=== PATIENT | female | born 1995 | race African-American/Black ===

== ENCOUNTER 2019-09-23 17:08 | Inpatient (IN) | payer OTHER ==
[~2019-09-23] VITALS: Ht 172.7 cm; Wt 98.9 kg
--- NOTE | ~2019-09-23 | EMS ---
[address] [address] EMS Patient Care Report Name: YAJAIRA NUGENT Room #: REG HELIO Crury#: [id number] Admission: 09/23/19 Attend Phys: Discharge: Date of : [birth year] Report #: [id number] THIS REPORT FOR: //name// Report Transmitted: 09/23/2019 18:38 EMS Care Summary [place], [place]/[facility] Incident [id number] @ 09/23/2019 16:31 Incident Location [address] [place] [address] Patient YAJAIRA NUGENT Female, 24 Years 1995 Patient Address [address] [place] [address] Patient History Seizures, Patient Allergies No known allergies, Patient Medications Keppra, Chief Complaint SEIZURE Disposition Transported No Lights/[place] Dispatch Reason Convulsions/Seizure Transported To [facility] Narrative PT FOUND LYING ON FLOOR. [facility] P28 ON SCENE. ALL CREW WEARING MASKS. FAMILY STATES THAT PT HAD 2 SEIZURES LASTING ABOUT 1-3 MINUTES. FD STATES THEY WITNESSED A SEIZURE LASTING ABOUT 30 SECONDS. FD HAS PT ON NRB AT 15 LPM. 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 PT NOTED TO HAVE A [facility] [address] [place] [address] EMS Patient Care Report Name: YAJAIRA NUGENT Room #: REG HELIO Curry#: [id number] Admission: 09/23/19 Attend Phys: Discharge: Date of : [birth year] Report #: [id number] [address] SEIZ[address] ON WAY TO ED THAT LASTED 20-30 SECONDS. SURGICAL MASK APPLIED TO PT IN UNIT. TRASNPORTED WITHOUT FURTHER INCIDENT. Initial Vitals @16:54P: 84,R: 16,BP: 118/72,Pain: 0/10,GCS: 9,Glucose: 72,SpO2: 100,Revised Trauma: 11, Assessments @16:48MENTAL:Unresponsive,SKIN:No Abnormalities,HEENT:Head/Face: No Abnormalities,Eyes: No Abnormalities,Neck/Airway: No Abnormalities,LUNG SOUNDS:ABDOMEN:PELVIS//GI:EXTREMITIES:PULSE:NEURO:No Abnormalities, Impression Seizures Procedures @17:01Saline Lock 10cc (20 ga) Site: Antecubital-LeftResponse: UnchangedSucceeded@16:48ALS AssessmentResponse: UnchangedSucceeded@PTAOxygen FlowRate: 15 Device: Non Re-breather Mask (NRB) Response: UnchangedSucceeded Timeline BACON SKINNER,Oxygen FlowRate: 15 Device: Non Re-breather Mask (NRB) Response: UnchangedSucceeded, 16:28,Call Received 16:28,Dispatch Notified 16:31,Dispatched 16:33,En Route 16:44,On Scene 16:48,At Patient 16:48,ALS Assessment,Response: UnchangedSucceeded, 16:54,BP: 118/72 M,PULSE: 84,RR: 16 R,SPO2: 100 Ox,ETCO2: ,B,PAIN: 0,GCS: 9, 16:55,Depart Scene 17:01,Saline Lock 10cc 20 ga Site: Antecubital-Left,Response: UnchangedSucceeded, 17:01,At Destination 17:28,Call Closed Disclaimer v1.1 Copyright 2020 [employer] This EMS Care Summary contains data elements from the applicable legal record (which may be displayed differently). It is designed to provide pertinent information for the following purposes: continuity of care, clinical quality, and state data reporting. The complete legal record is available to ED staff and administrators of the receiving hospital in [employer]'s Patient Tracker. All data is provided "as is."
[2019-09-23 17:09] VITALS: BP 145/83
[2019-09-23] MEDS ORDERED: KEPPRA XR500 MG PO (17:25)
[2019-09-23 17:55] LABS: ABSOLUTE NEUTROPHILS 2.2 thou/uL (1.4-8.2); BASOPHILS 0.6 % (0.0-2.0); EOSINOPHILS 3.6 % (0.0-3.0); HEMATOCRIT 36.6 % (37.0-47.0); HEMOGLOBIN 12.3 gm/dL (12.0-15.0); LYMPHOCYTES 41.6 % (24.0-44.0); MCH 28.3 pg (26.0-34.0); MCHC 33.6 g/dL (28.0-37.0); MCV 84.2 fL (80.0-100.0); MONOCYTES 7.6 % (1.0-8.0); PLATELET COUNT 219 thou/uL (150-400); POLYS 46.6 % (36.0-66.0); RBC 4.35 mil/uL (4.20-5.00); URINE BILIRUBIN NEGATIVE (Negative); URINE BLOOD 2+ (Negative); URINE CLARITY CLEAR; URINE COLOR YELLOW; URINE GLUCOSE-RANDOM* NEGATIVE (Negative); URINE KETONES NEGATIVE (Negative); URINE LEUKOCYTES-REFLEX NEGATIVE (Negative); URINE NITRITE-REFLEX NEGATIVE (Negative); URINE PROTEIN (DIPSTICK) TRACE (Negative); URINE SPECIFIC GRAVITY >= 1.030 (1.005-1.035); URINE UROBILINOGEN 0.2 E.U./dl (0.2-1.0); WBC 4.8 thou/uL (4.0-11.0)
[2019-09-23 18:04] LABS: SQUAMOUS >10 Many /LPF (0-3)
[2019-09-23 18:05] LABS: MUCUS >6 Heavy strn/LPF (None Seen)
[2019-09-23 18:07] LABS: BACTERIA-REFLEX None Seen /HPF (None Seen); CASTS None Seen /LPF (None Seen); CRYSTALS None Seen /LPF (None Seen); URINE RBC 3-10 Few /HPF (0-2); URINE WBC-REFLEX 0-5 Rare /HPF (0-5); YEAST-REFLEX Present (None Seen)
[2019-09-23 18:14] LABS: AMP/METHAMP Negative (Negative); BARBITURATES Negative (Negative); BENZODIAZEPINES Negative (Negative); COCAINE Negative (Negative); METHADONE Negative (Negative); OPIATES Negative (Negative); PCP Negative (Negative)
[2019-09-23 18:27] LABS: ANION GAP 8 mmol/L (7-16); BUN 11 mg/dL (7-18); CALCIUM 9.1 mg/dL (8.5-10.1); CHLORIDE 103 mmol/L (98-107); CO2 25 mmol/L (21-32); GLUCOSE 120 mg/dL (74-106); POTASSIUM 3.7 mmol/L (3.5-5.1); SODIUM 136 mmol/L (136-145)
[2019-09-23 18:33] LABS: ALBUMIN 3.8 g/dL (3.4-5.0); DIRECT BILIRUBIN < 0.1 mg/dL (<0.1-0.2); SGOT 20 U/L (15-37); SGPT 20 U/L (30-65); TOTAL BILIRUBIN 0.3 mg/dL (0.2-1.0); TOTAL PROTEIN 7.5 g/dL (6.4-8.2)
[2019-09-23 22:10] VITALS: BP 112/50
[2019-09-23 23:37] VITALS: BP 119/59
[2019-09-24 00:02] VITALS: BP 126/59
[2019-09-24 03:26] LABS: HEMATOCRIT 37.7 % (37.0-47.0); HEMOGLOBIN 12.4 gm/dL (12.0-15.0); MCH 27.9 pg (26.0-34.0); MCHC 32.8 g/dL (28.0-37.0); MCV 85.1 fL (80.0-100.0); RBC 4.43 mil/uL (4.20-5.00); RDW 13.4 % (10.5-14.5)
[2019-09-24 03:37] LABS: CALCIUM 8.8 mg/dL (8.5-10.1); CREATININE 0.9 mg/dL (0.6-1.0); POTASSIUM 3.5 mmol/L (3.5-5.1)
[2019-09-24 03:43] LABS: CHOLESTEROL 209 mg/dL (<200); HDL CHOLESTEROL 65 mg/dL (>40); LDL CHOLESTEROL 132 mg/dL (<100); TC:HDL 3.2 Ratio (Not establshd); TRIGLYCERIDE 60 mg/dL (<150); VLDL 12 mg/dL (<40)
[2019-09-24 03:46] LABS: SERUM ASSESSMENT Clear
[2019-09-24 07:28] VITALS: BP 125/72
--- NOTE | 2019-09-24 07:35 | NUR ---
VSS-AFEBRILE LUNGS CLEAR-ROOM AIR. NO SEIZURES SINCE ARRIVAL TO UNIT FROM ER. OOB WITH 1 ASSIST, WEAK AND SLIGHTLY UNSTEADY ON FEET. NO C/O PAIN. FALL PRECAUTIONS IN PLACE, CALLS APPROPRIATELY FOR ANY NEEDED ASSISTANCE.
[2019-09-24 09:25] VITALS: BP 125/73
[2019-09-24 16:10] VITALS: BP 122/71
[2019-09-24 20:05] VITALS: BP 119/56
--- NOTE | 2019-09-24 20:11 | NUR ---
Assumed pt care this am, seizure and fall precautions in place. Seizure was noted at 9 am while EEG was being taken. informed, lorazepam given, seizure lasted for 2 minutes. Diet and medications were tolarated well, sister was at the bed side for most of the day. Seen by neurology this pm, MRI done and EEG, another seizure was noted at shift change, night nurse witnessed this as well. Infomed MD and neurology, keppra dose was changed to be given now. Futher evaluation was recommended by neuro in another facility (video monitored EEG), MD informed. POC followed, with no signs of distress, pt would be very tired after the event and be asleep.
[2019-09-25 00:23] VITALS: BP 117/56
[2019-09-25 01:06] LABS: GLYCOHEMOGLOBIN (HGB A1C) 5.6 % (4.8-5.6)
[2019-09-25 04:38] VITALS: BP 97/59
--- NOTE | 2019-09-25 04:58 | NUR ---
ASSUMED OT CARE AROUND 1900. PT WAS HAVING SEIZURE LIKE ACTIVIY. REPORTED TO IMMEDIATELY AND KEPPRA DOSE INCREASED. PER PT WILL NEED TO TRANSFER TO A DIFFERENT HOSPITAL FOR A PROCEDURE NOT AVAILABLE HERE. SAID THERE'S NO NEED TO TRANSFER THE PT STAT, BUT TO REPORT TO PHYSICIAN FOR IF SEIZURE LIKE ACTIVITY LASTS FOR MORE THAN 30 SECS. NO SEIZURE LIKE ACTIVITY NOTED OR REPORTED AT THIS TIME. LOW BP 97/59 REPORTED ANIL GRESHAM SUPERVISOR TWISTING DEPARTMENT FOR WITHOUT NEW ORDER AT THIS TIME. WILL CONT TO MONITOR FOR ANY CHANGES IN CONDITION.
[2019-09-25 07:58] VITALS: BP 148/46
[2019-09-25] MEDS ORDERED: KEPPRA XR500 MG PO ×2 (12:31→16:20)
[2019-09-25 13:00] VITALS: BP 148/46
--- NOTE | 2019-09-25 13:18 | NUR ---
Assumed pt care this am, vs stable, no seizures have been noted since the evening before. Seen by Dr. Issa, recommended she goes to another hopital for vidoe eeg which is not available here. manager contract informed and MD. Pt verbalized she does not want to transfer to another hospital and mentioned this new doese of medication is working well. Educated the pt on precautions she needs to take and not to drive for the next 6 months and needs to see a primary for follow up. DC orders given, instructions given top the pt, prescriptions sent to the pharmacy. POC followed with no signs or verbalizations of distress noted. IV removed, awaiting sister to ppick up the pt.
--- NOTE | 2019-09-27 17:36 | HC ---
[facility] [place] [address] CONSULTATION Name: YAJAIRA NUGENT Room #: 461-P [facility] IN M.R.#: [id number] Admission: 09/23/19 Attend Phys: Pop Barrientos MD Discharge: 09/25/19 Date of : [birth year] Report #: [id number] THIS REPORT FOR: cc: TANNA - No family physician/PCP TANNA - No family physician/PCP Navin Mendes MD ~ CC: TANNA physician/PCP Ppo Barrientos DATE OF SERVICE: 09/24/2019 HISTORY OF PRESENT ILLNESS: This is a 24-year-old female patient who was seen by me for a seizure. I have no prior records in this patient. She indicated she was living in [place] and her seizures were managed by a neurologist in [place]. She gives a history that she probably had a head injury in 2012. It was a minor head injury and she was out just for a small amount of time. Then a few years ago, she started having seizure. She takes Keppra. It is not clear what her dosage is. Presently, she is on 500 mg b.i.d. of Keppra in the hospital. She said she had 2 seizures in the Emergency Room where she stiffened up and had some shaking. She says that sometimes she bites tongue during the seizure. She does admit to stress brings it on. The last seizure was brought in by allergy. REVIEW OF SYSTEMS: Positive for these seizures. Also positive for stress, but is otherwise noncontributory. PAST MEDICAL HISTORY: Positive for seizure, but history is not very clear that they are not nonepileptiform events. FAMILY HISTORY: Unremarkable. SOCIAL HISTORY: She says she drinks very occasionally and she also smokes very little. She did not specify any further. PHYSICAL EXAMINATION: GENERAL: Indicate she is alert, responsive, able to follow simple and complex command. NEUROLOGIC: Cranial nerve examination 2-12 looks unremarkable. I could not look at the fundus. She has symmetrical strength, sensation, reflexes and tones in all 4 extremities. MUSCULOSKELETAL: Her knee indicated scar tissue up there and she said she had surgery there and she is developing some arthritis. CARDIAC: Unremarkable. LUNGS: No respiratory difficulty was noticed. The pulses are palpable. VITAL SIGNS: Blood pressure is 125/73, respiration is 16, pulse is 86, temperature is 98.3. [facility] [address] [place] [address] CONSULTATION Name: YAJAIRA NUGENT Room #: 461-P [facility] IN M.R.#: [id number] Admission: 09/23/19 Attend Phys: Pop Barrientos MD Discharge: 09/25/19 Date of : [birth year] Report #: [id number] LABORATORY DATA: Indicated normal white count even when she came in. Sodium is trace low at 135. Her LDL is pretty high. The test is negative. IMPRESSION: 1. This patient presents with history of seizure. It is not possible to say that at least some of the episodes are nonepileptiform event. 2. Hyperlipidemia. RECOMMENDATIONS: 1. MRI and EEG. 2. We can continue Keppra at the moment and I discussed the potential side effects of Keppra including teratogenic side effects. She indicated that is not the problem. I told her if EEG is negative, she needs to go to an epileptologist either at [facility] or for further evaluation. She needs to take folic acid all the time. She needs to take seizure precautions including the fact that she cannot drive at least for 6 months from the last seizure. She understands this approach and she wants to follow this approach and I have discussed the pros and cons of this approach in detail with her. Thank you very much for this referral. <ELECTRONICALLY SIGNED> By: Navin Mendes MD 09/27/19 [id number] Navin Mendes MD /nt
== END 2019-09-25 14:47 | disposition home or self-care (01) | DRG 101 ==
LOC: ER 17:08 → EROBS 20:31 → 4W 20:31
PROVIDERS: Emergency Medicine; Nurse Practitioner Family; ADMIT Hospitalist; ATTEND Hospitalist
DX: G40.909 Epilepsy, unspecified, not intractable, without status epilepticus (principal); F10.10 Alcohol abuse, uncomplicated; E78.5 Hyperlipidemia, unspecified; F17.210 Nicotine dependence, cigarettes, uncomplicated; Z79.899 Other long term (current) drug therapy; Z91.010 Allergy to peanuts; Z91.013 Allergy to seafood; Z91.018 Allergy to other foods; I25.2 Old myocardial infarction; Z83.438 Family history of other disorder of lipoprotein metabolism and other lipidemia; Z82.49 Family history of ischemic heart disease and other diseases of the circulatory system
CPT/HCPCS: 10045